=== PATIENT | female | born 1965 | race Caucasian/White ===

== ENCOUNTER 2020-09-17 11:07 | Emergency (ER) | payer MEDICAID, OTHER ==
[~2020-09-17] VITALS: Ht 160 cm; Wt 81.6 kg
[2020-09-17 13:04] VITALS: BP 118/69
== END 2020-09-17 13:32 | disposition home or self-care (01) ==
LOC: ER 11:07
DX: K58.0 Irritable bowel syndrome with diarrhea (principal); E78.5 Hyperlipidemia, unspecified; Z90.49 Acquired absence of other specified parts of digestive tract